=== PATIENT | male | born 1940 | race Caucasian/White ===

== ENCOUNTER → 2022-02-13 12:23 | Outpatient (CLI) | payer MEDICARE, SELFPAY ==
[2022-02-13 20:30] LABS: Cholesterol 224 mg/dL (140-199); Glucose 170 mg/dL (80-110); HDL Cholesterol 44 mg/dL (40-60); LDL Cholesterol Calculated 111 mg/dL (<100); Triglycerides 343 mg/dL (35-150)
[2022-02-13 21:04] LABS: Prostate Specific Antigen 25.2 ng/mL (0.10-4.00)
== END ==
PROVIDERS: PCP Family Medicine; Visit Provider Family Medicine
DX: Z00.00 Encounter for general adult medical examination without abnormal findings (principal); Z12.11 Encounter for screening for malignant neoplasm of colon; Z12.5 Encounter for screening for malignant neoplasm of prostate; Z13.1 Encounter for screening for diabetes mellitus; Z13.220 Encounter for screening for lipoid disorders
CPT/HCPCS: 80061; 82947; 84153

== ENCOUNTER → 2022-09-26 13:53 | Outpatient (CLI) | payer MEDICARE, SELFPAY ==
[2022-09-26 20:11] LABS: Blood Urea Nitrogen 20 mg/dL (9-20); Carbon Dioxide 22 mmol/L (22-32); Chloride 100 mmol/L (98-107); Cholesterol 248 mg/dL (140-199); Estimated Glomerular Filt Rate > 60 mL/min (>60); Glucose 152 mg/dL (80-110); HDL Cholesterol 47 mg/dL (40-60); HEMOLYSIS < 15 (0-50); LDL Cholesterol Calculated 137 mg/dL (<100); Potassium 4.2 mmol/L (3.4-5.1); Sodium 136 mmol/L (137-145); Triglycerides 320 mg/dL (35-150)
[2022-09-26 20:42] LABS: Prostate Specific Antigen 4.29 ng/mL (0.10-4.00)
[2022-09-26 21:31] LABS: Creatinine Urine Random 89.6 mg/dL
[2022-09-26 21:36] LABS: Microalbumi Creatinin Ratio Ur 104.9 ug/mg CR (<30); Microalbumin Urine Random 9.4 mg/dL (0-1.6)
[2022-09-27 23:43] LABS: x Labcorp Estim. Avg Glu (eAG) 143 mg/dL (.); x Labcorp Hemoglobin A1c 6.6 % (4.8-5.6)
== END ==
PROVIDERS: PCP Family Medicine; Visit Provider Family Medicine
DX: E11.9 Type 2 diabetes mellitus without complications (principal); E78.2 Mixed hyperlipidemia; E83.52 Hypercalcemia; I10 Essential (primary) hypertension; R97.20 Elevated prostate specific antigen [PSA]
CPT/HCPCS: 80048; 80061; 82043; 82570; 83036; 84153

== ENCOUNTER → 2023-03-12 13:01 | Outpatient (CLI) | payer MEDICARE, SELFPAY ==
[2023-03-12 19:18] LABS: Hemoglobin A1C% w Est Avg Glu 6.1 % (4.0-6.0)
[2023-03-12 19:20] LABS: BUN Creatinine Ratio 24.7 (6-22); Blood Urea Nitrogen 19 mg/dL (9-20); Calcium 10.2 mg/dL (8.4-10.2); Carbon Dioxide 22 mmol/L (22-32); Chloride 100 mmol/L (98-107); Estimated Glomerular Filt Rate > 60 mL/min (>60); Glucose 101 mg/dL (80-110); HEMOLYSIS < 15 (0-50); Sodium 134 mmol/L (137-145)
[2023-03-12 19:44] LABS: Creatinine Urine Random 93.2 mg/dL
[2023-03-12 19:50] LABS: Microalbumi Creatinin Ratio Ur 62.2 ug/mg CR (<30); Microalbumin Urine Random 5.8 mg/dL (0-1.6)
== END ==
PROVIDERS: PCP Family Medicine; Visit Provider Family Medicine
DX: R80.9 Proteinuria, unspecified (principal); I10 Essential (primary) hypertension; C61 Malignant neoplasm of prostate; E78.2 Mixed hyperlipidemia; E11.9 Type 2 diabetes mellitus without complications
CPT/HCPCS: 80048; 82043; 82570; 83036